=== PATIENT | female | born 1940 | race Caucasian/White ===

== ENCOUNTER → 2016-08-29 | Outpatient (CLI) | payer MEDICARE ==
[2016-08-29 12:38] LABS: BLOOD UREA NITROGEN 16 mg/dL (7-18)
[2016-08-29 12:42] LABS: ASPARTATE AMINO TRANSFERASE 17 U/L (15-37)
[2016-08-30 11:07] LABS: CREATININE URINE 132.2 mg/dL (Not Estab.)
== END | disposition home or self-care (01) ==
LOC: LAB 10:26
PROVIDERS: ATTEND Internal Medicine Cardiovascular Disease
DX: I10 Essential (primary) hypertension (principal); E11.9 Type 2 diabetes mellitus without complications; E78.2 Mixed hyperlipidemia
CPT/HCPCS: 36415; 80053; 80061; 82043; 82570; 83036